=== PATIENT | male | born 1960 | race African-American/Black ===

== ENCOUNTER 2020-07-19 10:32 | Emergency (ER) | payer MEDICAID, OTHER ==
[~2020-07-19] VITALS: Ht 182.9 cm; Wt 121.0 kg
[2020-07-19 10:34] VITALS: BP 154/98
[2020-07-19] MEDS ORDERED: DIPHENHYDRAMINE 25MG CAPSULE PO ONE (11:00)
[2020-07-19] MEDS ORDERED: SILVER SULFADIAZINE 1% CREAM 25GM TOP ONE (11:00)
== END 2020-07-19 11:33 | disposition home or self-care (01) ==
LOC: ER 10:55
DX: T78.49XA Other allergy, initial encounter (principal); X58.XXXA Exposure to other specified factors, initial encounter; Z90.49 Acquired absence of other specified parts of digestive tract
CPT/HCPCS: 99283; Q0163